=== PATIENT | female | born 1985 | race Caucasian/White ===

== ENCOUNTER 2017-11-19 12:27 | Emergency (ER) | payer SELFPAY ==
[~2017-11-19] VITALS: Ht 165.1 cm; Wt 73.0 kg
[2017-11-19 12:31] VITALS: Ht 165.1 cm; Wt 73.0 kg
[2017-11-19 13:45] VITALS: BP 140/77
== END 2017-11-19 13:45 | disposition home or self-care (01) ==
LOC: ED 12:27
DX: S43.402A Unspecified sprain of left shoulder joint, initial encounter (principal); X58.XXXA Exposure to other specified factors, initial encounter; Y93.89 Activity, other specified; Y92.89 Other specified places as the place of occurrence of the external cause; Y99.8 Other external cause status
CPT/HCPCS: Q0092